=== PATIENT | male | born 1975 | race Caucasian/White ===

== ENCOUNTER 2020-01-03 12:30 | Emergency (ER) | payer BC ==
[2020-01-03] MEDS ORDERED: HYDROmorphone 2 MG/ML Syringe IVPUSH ONE (13:24)
[2020-01-03] MEDS ORDERED: Prochlorperazine 10 MG/2 ML SDV IVPUSH ONE (13:24)
[2020-01-03] MEDS ORDERED: methylPREDNISolone Sodium Succinate 125 MG/2 ML SDV IVPUSH ONE (13:26)
--- NOTE | 2020-01-03 13:30 | EDM.PDOC ---
ED [facility] GENERAL MEDICAL PROBLEM - General Chief Complaint: Abdominal Pain Stated Complaint: ABDOMINAL PAIN Time Seen by Provider: 01/03/20 12:48 - History of Present Illness INITIAL COMMENTS - FREE TEXT/NARRATIVE: HISTORY AND PHYSICAL: History of present illness: 44-year-old male with a presumed diagnosis of Crohn's disease who has been dealing with pain on and off since October. He has been seen at multiple other hospitals including the [facility]. Most recently he went to [place] last night and received a CT scan and labs which he reported were normal or had no surgical pathology. The patient has had CTs, MRIs, and was recommended to have an open biopsy of his lesion however this has not been completed yet because he eventually became pain-free. The patient states that his pain came back on and it is quite severe. He rates it as severe, generalized throughout the abdomen, comes in severe waves. And he cannot get pain-free. No other associated signs or symptoms. Denies hematochezia, hematemesis, or melena. Review of systems: A 10-point review of systems, other than pertinent positives and negatives as stated per HPI, is otherwise negative. Past medical history: As per history of present illness and as reviewed below otherwise noncontributory. Surgical history: As per history of present illness and as reviewed below otherwise noncontributory. Social history: No reported history of drug or alcohol abuse. Family history: As per history of present illness and as reviewed below otherwise noncontributory. Physical exam: VITAL SIGNS: Reviewed. GENERAL: Appears to be in acute pain. Rubbing abdomen. HEAD: No signs of head trauma. EYES: Pupils are equal. Extraocular motions intact. EARS: Hearing grossly intact. MOUTH: Oropharynx is normal. NECK: No adenopathy, no JVD. CHEST: Chest with clear breath sounds bilaterally. No wheezes, rales, or rhonchi. CARDIAC: Regular rate and rhythm. Normal S1 and S2, without murmurs, gallops, or rubs. VASCULAR: Peripheral pulses normal and equal in all extremities. ABDOMEN: Soft, no distention, diffusely tender. No rebound or guarding. No masses palpated. MUSCULOSKELETAL: Good range of motion of all major joints. Extremities without clubbing, cyanosis or edema. NEUROLOGIC EXAM: Alert and oriented x 3. No focal sensory or motor deficits. Speech normal. Follows commands. PSYCHIATRIC: Mood normal. SKIN: No rash or lesions. Initial Differential Diagnosis & Plan: The differential diagnosis would include appendicitis, cholecystitis, pyelonephritis, pancreatitis, mesenteric infarction, diverticulitis, small bowel obstruction, volvulus, and ACS. I doubt ACS, volvulus or pyelonephritis. He does not have symptoms consistent with these diseases. His CT scan that was done [facility] at [facility] was reported as normal and he was sent home with Bentyl and Zofran. I do not feel that the patient requires CT imaging today however I will obtain an acute abdominal series given his diffuse abdominal tenderness. He likely has Crohn's disease and would like to try some initial therapy. I will give's initial dose of Compazine, Dilaudid, and Solu-Medrol IV. The patient will be reevaluated after labs and initial imaging. Definitive disposition and diagnosis as appropriate pending reevaluation and review of above. abdomen Pain Score (Numeric/FACES): 10 - Related Data Allergies Allergy/AdvReac Type Severity Reaction Status Date / Time No Known Allergies Allergy Verified 09/17/14 12:45 Home Meds: Home Meds Dicyclomine [Bentyl] 10 mg PO QID PRN 01/03/20 [History] Ondansetron [Zofran ODT] 4 mg PO Q6HR 01/03/20 [History] Psyllium Husk (With Sugar) [Metamucil Powder] 2 tbsp PO TID 14 Days #1042 powder 01/03/20 [Rx] predniSONE [Prednisone] 50 mg PO DAILY 5 Days #5 tablet 01/03/20 [Rx] ED ROS GENERAL - Review of Systems Review Of Systems: See Below (noted) ED EXAM, GI/ABD - Physical Exam Exam: See Below (noted) Course - Vital Signs Last Recorded V/S: Last Vital Signs Temp 98.1 F 01/03/20 14:47 Pulse 68 01/03/20 14:47 Resp 20 01/03/20 14:47 BP 134/80 01/03/20 14:47 Pulse Ox 99 01/03/20 14:47 - Orders/Labs/Meds Labs: Laboratory Tests 01/03/20 01/03/20 Range/Units 13:26 13:26 WBC 10.58 (4.0-11.0) K/uL RBC 5.47 (4.50-5.90) M/uL Hgb 17.4 H (13.0-17.0) g/dL Hct 52.5 H (38.0-50.0) % MCV 96.0 (80.0-98.0) fL MCH 31.8 (27.0-32.0) pg MCHC 33.1 (31.0-37.0) g/dL RDW Std Deviation 49.5 (28.0-62.0) fl RDW Coeff of Matt 14 (11.0-15.0) % Plt Count 214 (150-400) K/uL MPV 10.80 (7.40-12.00) fL Neut % (Auto) 80.3 H (48.0-80.0) % Lymph % (Auto) 11.9 L (16.0-40.0) % [place] % (Auto) 5.6 (0.0-15.0) % Eos % (Auto) 2.0 (0.0-7.0) % Baso % (Auto) 0.2 (0.0-1.5) % Neut # (Auto) 8.5 H (1.4-5.7) K/uL Lymph # (Auto) 1.3 (0.6-2.4) K/uL [place] # (Auto) 0.6 (0.0-0.8) K/uL Eos # (Auto) 0.2 (0.0-0.7) K/uL Baso # (Auto) 0.0 (0.0-0.1) K/uL Nucleated RBC % 0.0 /100WBC Nucleated RBCs # 0 K/uL Sodium 140 (136-148) mmol/L Potassium 4.4 (3.5-5.1) mmol/L Chloride 105 (98-107) mmol/L Carbon Dioxide 25.1 (21.0-32.0) mmol/L BUN 11 (7.0-18.0) mg/dL Creatinine 1.0 (0.8-1.3) mg/dL Est Cr Clr Drug Dosing TNP Estimated GFR (MDRD) > 60.0 ml/min Glucose 111 H (74-106) mg/dL Calcium 8.1 L (8.5-10.1) mg/dL Total Bilirubin 0.5 (0.2-1.0) mg/dL AST 15 (15-37) IU/L ALT 25 (14-63) IU/L Alkaline Phosphatase 65 (46-116) U/L Total Protein 6.4 (6.4-8.2) g/dL Albumin 3.5 (3.4-5.0) g/dL Globulin 2.9 (2.6-4.0) g/dL Albumin/Globulin Ratio 1.2 (0.9-1.6) Lipase 48 L (73-393) U/L Meds: Medications Discontinued Medications Generic Name Dose Route Start Last Admin Trade Name Freq PRN Reason Stop Dose Admin Hydromorphone HCl 1 mg 01/03/20 13:24 01/03/20 13:33 Dilaudid IVPUSH 01/03/20 13:25 1 mg ONETIME ONE Administration Methylprednisolone Sodium Succinate 125 mg 01/03/20 13:26 01/03/20 13:37 Solu-Medrol IVPUSH 01/03/20 13:27 125 mg ONETIME ONE Administration Methylprednisolone Sodium Succinate Confirm 01/03/20 13:32 01/03/20 13:37 Solu-Medrol Administered 01/03/20 13:33 Not Given Dose 125 mg .ROUTE .STK-MED ONE Prochlorperazine Edisylate 10 mg 01/03/20 13:24 01/03/20 13:37 Compazine IVPUSH 01/03/20 13:25 10 mg ONETIME ONE Administration Departure - Departure Time of Disposition: 14:03 Disposition: Home, Self-Care 01 Clinical Impression: Crohn's disease - Discharge Information *PRESCRIPTION DRUG MONITORING PROGRAM REVIEWED*: Not Applicable *COPY OF PRESCRIPTION DRUG MONITORING REPORT IN PATIENT [place]: Not Applicable Prescriptions: Psyllium Husk (With Sugar) [Metamucil Powder] 2 tbsp PO TID 14 Days #1042 powder predniSONE [Prednisone] 50 mg PO DAILY 5 Days #5 tablet Instructions: Duodenal Biopsy, Crohn's Disease Referrals: PCP,Not In Area [Primary Care Provider] - Forms: ED Department Discharge Additional Instructions: The following information is given to patients seen in the emergency department who are being discharged to home. This information is to outline your options for follow-up care. We provide all patients seen in our emergency department with a follow-up referral. The need for follow-up, as well as the timing and circumstances, are variable depending upon the specifics of your emergency department visit. If you don't have a primary care physician on staff, we will provide you with a referral. We always advise you to contact your personal physician following an emergency department visit to inform them of the circumstance of the visit and for follow-up with them and/or the need for any referrals to a consulting specialist. The emergency department will also refer you to a specialist when appropriate. This referral assures that you have the opportunity for follow-up care with a specialist. All of these measure are taken in an effort to provide you with optimal care, which includes your follow-up. Thank you for coming to the [facility] urgency department for your care today. It was Dr. Millard's pleasure to take care of you. [facility] - Primary [facility] [address] [place] [address] [place] [address] You did not want additional therapy or work-up today. You are feeling better after medications. Please try these medications at home and we will see if this improves your overall condition. Please return emergency department for fever, vomiting or any other concerns. Under all circumstances we always encourage you to contact your private physician who remains a resource for coordinating your care. When calling for follow-up care, please make the office aware that this follow-up is from your recent emergency room visit. If for any reason you are refused follow-up, please contact the [facility] Emergency Department at and asked to speak to the emergency department charge nurse. Sepsis Event Note (ED) - Evaluation Sepsis Screening Result: No Definite Risk - Focused Exam Vital Signs: Vital Signs Temp Pulse Resp BP Pulse Ox 01/03/20 14:47 98.1 F 68 20 134/80 99 01/03/20 13:13 96.1 F L 74 20 126/80 96
[2020-01-03] MEDS ORDERED: methylPREDNISolone Sodium Succinate 125 MG/2 ML SDV ONE (13:32)
[2020-01-03 13:58] LABS: BLOOD UREA NITROGEN,BUN 11 mg/dL (7.0-18.0); CARBON DIOXIDE,CO2 25.1 mmol/L (21.0-32.0); CHLORIDE,CL 105 mmol/L (98-107); GLUCOSE RANDOM 111 mg/dL (74-106); LIPASE 48 U/L (73-393); POTASSIUM,K 4.4 mmol/L (3.5-5.1); SODIUM,NA 140 mmol/L (136-148)
== END 2020-01-03 14:47 | disposition home or self-care (01) ==
LOC: MW.ED 12:30
DX: K50.90 Crohn's disease, unspecified, without complications (principal); Z79.899 Other long term (current) drug therapy
CPT/HCPCS: 36415; 80053; 83690; 85025; 96374; 96375; 99284; J0780; J1170; J2930; 99283